=== PATIENT | female | born 1965 | race Caucasian/White ===

== ENCOUNTER 2017-11-27 21:46 | Emergency (ER) | payer OTHER ==
[~2017-11-27] VITALS: Ht 152.4 cm; Wt 70.4 kg
[2017-11-27] MEDS ORDERED: FLEXERIL10 MG PO (23:56)
[2017-11-27] MEDS ORDERED: NAPROSYN500 MG PO (23:56)
[2017-11-27] MEDS ORDERED: LORTAB 5-325 M1 EACH PO (23:56)
[2017-11-28 00:25] VITALS: BP 130/82
== END 2017-11-28 00:15 | disposition home or self-care (01) ==
LOC: EME 21:46
DX: R10.9 Unspecified abdominal pain (principal); S16.1XXA Strain of muscle, fascia and tendon at neck level, initial encounter; S80.01XA Contusion of right knee, initial encounter; S80.02XA Contusion of left knee, initial encounter; V49.40XA Driver injured in collision with unspecified motor vehicles in traffic accident, initial encounter; Y92.410 Unspecified street and highway as the place of occurrence of the external cause; Z88.0 Allergy status to penicillin; Z88.1 Allergy status to other antibiotic agents
CPT/HCPCS: 99281; 99284; J1885